=== PATIENT | female | born 1965 | race African-American/Black ===

== ENCOUNTER 2017-06-18 20:28 | Emergency (ER) | payer OTHER ==
[~2017-06-18] VITALS: Ht 160 cm; Wt 144.1 kg
[~2017-06-18 20:28] MED LIST: ALBUTEROL SULF8.5 GM IH; AUGMENTIN500 MG PO; Advair 250/50 Diskus IH; Ativan PO; BENADRYL25 MG PO; BENADRYL50 MG PO; CARAFATE100 MG/ML PO; CARDIZEM CD,CA240 MG PO; CARVEDILOL6.25 MG PO; CATAPRES0.2 MG PO; CIPRO500 MG PO; CLONIDINE HCL0.1 MG PO; Catapres PO; Cepacol Lozenge, Sor MM; DELTASONE20 M1 PO; ENDOCET 5-3251 EACH PO; EPIPEN ADU0.3 MG/0.3 IM; FLEXERIL10 MG PO; FLONASE16 G1 BOTH NARES; GUAIFENESIN WI120 ML PO; Habitrol,Nicoderm CQ TD; IBUPROFEN800 MG PO; INVOKANA100 MG PO; KEFLEX500 MG PO; KOMBIGLYZE XR1 EAC2 PO; LEVAQUIN500 MG PO; Levaquin PO; MEDROL DOSEPAK4 MG PO; METFORMIN HCL1000 MG PO; METFORMIN HCL500 MG PO; MUCUS ER600 MG PO; NAPROSYN500 MG PO; NOHOMEMEDS; Norvasc PO; PEPCID20 MG PO; PERCOCET 5/31 TABLET PO; PREDNISONE20 MG PO; PROAIR HFA8.5 GM IH; PROTONIX40 MG PO; PROVENTIL,2.5 MG/0.5 IH; PROVENTIL,2.5 MG/3 M IH; RANITIDINE HCL150 MG PO; TESSALON PERLE100 MG PO; TO WHOM IT MAY CONCE; VENTOLIN HFA18 GM IH; VICODIN 5-3001 EACH PO; ZITHROMAX Z-PA250 MG PO; ZOFRAN4 MG PO; ZYRTEC10 M2 PO; predniSONE PO
[2017-06-19] MEDS ORDERED: ZITHROMAX250 MG PO (01:25)
[2017-06-19] MEDS ORDERED: ALBUTEROL2.5 MG/3 M IH (01:25)
[2017-06-19] MEDS ORDERED: PROMETHAZINE HC25 M1 PO (01:25)
[2017-06-19 01:47] VITALS: BP 157/81
== END 2017-06-19 01:57 | disposition home or self-care (01) ==
LOC: EME 20:28
DX: J45.41 Moderate persistent asthma with (acute) exacerbation (principal); I10 Essential (primary) hypertension; J44.9 Chronic obstructive pulmonary disease, unspecified; E11.9 Type 2 diabetes mellitus without complications; Z79.84 Long term (current) use of oral hypoglycemic drugs; F17.200 Nicotine dependence, unspecified, uncomplicated
CPT/HCPCS: 71020; 93005; 94640; 94640 76; 99281; 99284; J8540

== ENCOUNTER 2017-06-27 17:57 | Emergency (ER) | payer OTHER ==
[~2017-06-27] VITALS: Ht 160 cm; Wt 142.2 kg
[~2017-06-27 17:57] MED LIST changes: +ALBUTEROL2.5 MG/3 M IH; +PROMETHAZINE HC25 M1 PO; +ZITHROMAX250 MG PO
[2017-06-27 19:12] LABS: HEMATOCRIT 37.9 % (36.0-46.0); MCH 27.3 PG (29.0-34.0); MCHC 32.5 G/DL (30.0-36.0); MCV 84.2 FL (83-99); RBC DIS.WIDTH-CV 14.2 % (11.8-14.6); RBC DIS.WIDTH-SD 43.2 % (39-53); WHITE BLOOD COUNT 8.5 K/uL (4.1-10.2)
[2017-06-27 19:18] LABS: CHLORIDE 102 mEq/L (99-109); POTASSIUM 3.7 mEq/L (3.7-5.4); SODIUM 139 mEq/L (136-147)
[2017-06-27 19:20] LABS: GLUCOSE 158 mg/dL (70-99)
[2017-06-27 19:21] LABS: ANION GAP 12 MEQ/L (2-14)
[2017-06-27 19:22] LABS: TOTAL BILIRUBIN 0.3 mg/dL (0.0-1.0)
[2017-06-27 19:24] LABS: ALKALINE PHOSPHATASE 84 IU/L (3-129); GFR ESTIMATE (CALCULATED) > 59 mL/min/
[2017-06-27 19:25] LABS: UREA NITROGEN (BUN) 8 mg/dL (9-23)
[2017-06-27 19:32] LABS: QUANTITATIVE HCG < 4.0 MIU/ML
[2017-06-27 19:58] LABS: ADD MIUA? YES; BILIRUBIN NEGATIVE; BLOOD NEGATIVE; COLOR YELLOW ((YELLOW)); GLUCOSE (STRIP) NEGATIVE; KETONES NEGATIVE; LEUKOCYTES NEGATIVE; NITRITE NEGATIVE; PROTEIN (STRIP) NEGATIVE; SPECIFIC GRAVITY 1.006 (1.000-1.030); UROBILINOGEN 0.2 MG/DL (0.2-1.0)
[2017-06-27 20:04] LABS: BACTERIA NONE SEEN /HPF; EPITHELIAL CELLS 1+ /HPF; MUCUS TRACE /LPF; RED BLOOD CELLS 0-5 /HPF (0-5); UCUL ADDED? NO; WHITE BLOOD CELLS 0-5 /HPF (0-5)
[2017-06-27 20:22] LABS: LIPASE 16 U/L (1.0-51.0)
[2017-06-27 20:29] LABS: MEAN PLAT.VOLUME 11.9 uM^3 (9.5-12.4); PLAT.SUFFICIENCY ADEQUATE; PLATELET COUNT 223 K/uL (156-360)
[2017-06-27] MEDS ORDERED: MOTRIN800 MG PO (23:05)
[2017-06-27] MEDS ORDERED: BENTYL20 MG PO (23:05)
[2017-06-27] MEDS ORDERED: ZOFRAN ODT4 MG PO (23:05)
[2017-06-27 23:31] VITALS: BP 159/82
[2017-06-28] MEDS ORDERED: ACYCLOVIR800 MG PO (20:06)
[2017-06-28] MEDS ORDERED: REGLAN5 MG PO (20:08)
[2017-06-28] MEDS ORDERED: ULTRACET1 TABLET PO (20:16)
== END 2017-06-27 23:32 | disposition home or self-care (01) ==
LOC: EME 17:57
DX: K52.9 Noninfective gastroenteritis and colitis, unspecified (principal); E11.9 Type 2 diabetes mellitus without complications; J44.9 Chronic obstructive pulmonary disease, unspecified; I10 Essential (primary) hypertension; Z98.51 Tubal ligation status; Z72.0 Tobacco use; Z79.84 Long term (current) use of oral hypoglycemic drugs
CPT/HCPCS: 74177; 80053; 81003; 83690; 84702; 85027; 99281; 99285; J0500; J1885; J2405

== ENCOUNTER 2017-06-28 16:13 | Emergency (ER) | payer OTHER ==
[~2017-06-28] VITALS: Ht 160 cm; Wt 141.7 kg
[~2017-06-28 16:13] MED LIST changes: +BENTYL20 MG PO; +MOTRIN800 MG PO; +ZOFRAN ODT4 MG PO
[2017-06-28 16:56] LABS: HEMATOCRIT 39.6 % (36.0-46.0); MCH 26.8 PG (29.0-34.0); MCHC 31.6 G/DL (30.0-36.0); MCV 84.8 FL (83-99); PLATELET COUNT 250 K/uL (156-360); RBC DIS.WIDTH-SD 43.3 % (39-53); RED BLOOD COUNT 4.67 M/uL (3.80-5.20); WHITE BLOOD COUNT 8.4 K/uL (4.1-10.2)
[2017-06-28 17:07] LABS: CHLORIDE 98 mEq/L (99-109); SODIUM 139 mEq/L (136-147)
[2017-06-28 17:09] LABS: GLUCOSE 122 mg/dL (70-99)
[2017-06-28 17:10] LABS: ANION GAP 16 MEQ/L (2-14)
[2017-06-28 17:12] LABS: ALKALINE PHOSPHATASE 86 IU/L (3-129)
[2017-06-28 17:13] LABS: GFR ESTIMATE (CALCULATED) > 59 mL/min/
[2017-06-28 17:14] LABS: UREA NITROGEN (BUN) 7 mg/dL (9-23)
[2017-06-28 17:16] LABS: LIPASE 21 U/L (1.0-51.0)
[2017-06-28 17:22] LABS: QUANTITATIVE HCG < 4.0 MIU/ML
[2017-06-28 17:26] LABS: TOTAL BILIRUBIN 0.4 mg/dL (0.0-1.0)
[2017-06-28] MEDS ORDERED: ACYCLOVIR800 MG PO (20:06)
[2017-06-28] MEDS ORDERED: REGLAN5 MG PO (20:08)
[2017-06-28] MEDS ORDERED: ULTRACET1 TABLET PO (20:16)
[2017-06-28 21:02] VITALS: BP 168/95
== END 2017-06-28 21:04 | disposition home or self-care (01) ==
LOC: EME 16:13
PROVIDERS: Physician Assistant Medical
DX: B02.9 Zoster without complications (principal); R10.9 Unspecified abdominal pain; R51 Headache; I10 Essential (primary) hypertension; E11.9 Type 2 diabetes mellitus without complications; Z79.84 Long term (current) use of oral hypoglycemic drugs; J44.9 Chronic obstructive pulmonary disease, unspecified; F41.9 Anxiety disorder, unspecified; F17.200 Nicotine dependence, unspecified, uncomplicated; Z88.8 Allergy status to other drugs, medicaments and biological substances
CPT/HCPCS: 70450; 80053; 81003; 83690; 84702; 85027; 99281; 99285; J1200; J2270; J2765; J7030

== ENCOUNTER 2017-07-29 12:51 | Observation (INO) | payer OTHER ==
[~2017-07-29] VITALS: Ht 160 cm; Wt 144.3 kg
[~2017-07-29 12:51] MED LIST changes: +ACYCLOVIR800 MG PO; +REGLAN5 MG PO; +ULTRACET1 TABLET PO
[2017-07-29 13:27] LABS: HEMATOCRIT 39.8 % (36.0-46.0); MCHC 31.7 G/DL (30.0-36.0); MCV 85.2 FL (83-99); MEAN PLAT.VOLUME 12.1 uM^3 (9.5-12.4); PLATELET COUNT 240 K/uL (156-360); RBC DIS.WIDTH-CV 14.4 % (11.8-14.6); RBC DIS.WIDTH-SD 44.6 % (39-53); RED BLOOD COUNT 4.67 M/uL (3.80-5.20)
[2017-07-29 13:36] LABS: CHLORIDE 105 mEq/L (99-109); POTASSIUM 3.7 mEq/L (3.7-5.4); SODIUM 142 mEq/L (136-147)
[2017-07-29 13:38] LABS: GLUCOSE 169 mg/dL (70-99)
[2017-07-29 13:39] LABS: ANION GAP 13 MEQ/L (2-14)
[2017-07-29 13:42] LABS: GFR ESTIMATE (CALCULATED) > 59 mL/min/
[2017-07-29 13:43] LABS: UREA NITROGEN (BUN) 15 mg/dL (9-23)
[2017-07-29 13:48] LABS: TROP-I INTERPRETATION NEGATIVE; TROPONIN-I 0.02 ng/mL (0.0-0.30)
[2017-07-29 13:50] LABS: QUANTITATIVE HCG < 4.0 MIU/ML
[2017-07-29 13:54] LABS: D-DIMER ELISA < 150.00 ng/mLDDU (<230)
[2017-07-29] MEDS ORDERED: BENADRYL25 MG PO (15:24)
[2017-07-29] MEDS ORDERED: NICODERM CQ1 EACH TD (15:25)
[2017-07-29 16:05] VITALS: BP 142/70
[2017-07-29 16:42] LABS: POINT-OF-CARE METER ID UU13113831
[2017-07-29 20:30] VITALS: BP 167/75
[2017-07-29 20:36] LABS: TROP-I INTERPRETATION NEGATIVE; TROPONIN-I 0.03 ng/mL (0.0-0.30)
[2017-07-30 00:14] VITALS: BP 139/66
[2017-07-30 02:12] LABS: TROP-I INTERPRETATION NEGATIVE; TROPONIN-I 0.03 ng/mL (0.0-0.30)
[2017-07-30 04:30] VITALS: BP 188/86
[2017-07-30 08:50] VITALS: BP 178/97
[2017-07-30 09:07] LABS: POINT-OF-CARE METER ID UU13113831
[2017-07-30] MEDS ORDERED: ASPIRIN81 M2 PO (09:37)
[2017-07-30] MEDS ORDERED: PRAVACHOL40 MG PO (09:37)
[2017-07-30] MEDS ORDERED: NORVASC5 MG PO (10:20)
[2017-07-30 11:12] VITALS: BP 208/93
[2017-07-30 12:35] LABS: POINT-OF-CARE METER ID UU13113831
[2017-07-30 13:33] VITALS: BP 171/74
[2017-07-30] MEDS ORDERED: NORVASC10 MG PO (13:44)
== END 2017-07-30 17:01 | disposition home or self-care (01) ==
LOC: EME 12:51 → 5WEST 14:55 → EDOF 14:55 → ENRESERV 14:57 → 5WEST 15:42
PROVIDERS: Emergency Medicine; Internal Medicine
DX: R07.9 Chest pain, unspecified (principal); I48.91 Unspecified atrial fibrillation; I10 Essential (primary) hypertension; E11.9 Type 2 diabetes mellitus without complications; E78.5 Hyperlipidemia, unspecified; E66.9 Obesity, unspecified; Z68.43 Body mass index [BMI] 50.0-59.9, adult; Z79.84 Long term (current) use of oral hypoglycemic drugs; Z90.49 Acquired absence of other specified parts of digestive tract; Z72.0 Tobacco use
CPT/HCPCS: 71010; 80048; 82948; 84443; 84484; 84702; 85027; 85379; 93005; 93306; 99281; 99285; G0378; J1650

== ENCOUNTER 2018-02-05 09:21 | Emergency (ER) | payer OTHER ==
[~2018-02-05] VITALS: Ht 160 cm; Wt 144.1 kg
[~2018-02-05 09:21] MED LIST changes: +ASPIRIN81 M2 PO; +NICODERM CQ1 EACH TD; +NORVASC10 MG PO; +NORVASC5 MG PO; +PRAVACHOL40 MG PO
[2018-02-05 09:54] LABS: HEMATOCRIT 39.4 % (36.0-46.0); HEMOGLOBIN 13.1 G/DL (11.9-15.5); MCH 27.9 PG (29.0-34.0); MCHC 33.2 G/DL (30.0-36.0); RBC DIS.WIDTH-CV 14.2 % (11.8-14.6); RBC DIS.WIDTH-SD 43.3 % (39-53); RED BLOOD COUNT 4.69 M/uL (3.80-5.20)
[2018-02-05 10:03] LABS: CHLORIDE 104 mEq/L (99-109); POTASSIUM 3.7 mEq/L (3.7-5.4); SODIUM 140 mEq/L (136-147)
[2018-02-05 10:04] LABS: GLUCOSE 212 mg/dL (70-99)
[2018-02-05 10:06] LABS: INTER. NORMALIZED RATIO 1.3
[2018-02-05 10:08] LABS: CREATININE 0.8 mg/dL (0.6-1.3); GFR ESTIMATE (CALCULATED) > 59 mL/min/; PTT 33.3 SEC (25-37)
[2018-02-05 10:09] LABS: UREA NITROGEN (BUN) 10 mg/dL (9-23)
[2018-02-05 10:14] LABS: TROP-I INTERPRETATION NEGATIVE; TROPONIN-I 0.02 ng/mL (0.0-0.30)
[2018-02-05 10:17] LABS: QUANTITATIVE HCG < 4.0 MIU/ML
[2018-02-05 10:35] LABS: PLAT.SUFFICIENCY ADEQUATE; PLATELET COUNT 282 K/uL (156-360)
[2018-02-05 12:45] LABS: TROP-I INTERPRETATION NEGATIVE; TROPONIN-I 0.02 ng/mL (0.0-0.30)
[2018-02-05 13:32] VITALS: BP 171/81
== END 2018-02-05 13:32 | disposition home or self-care (01) ==
LOC: EME 09:21
PROVIDERS: Emergency Medicine
DX: I48.91 Unspecified atrial fibrillation (principal); R06.00 Dyspnea, unspecified; I44.0 Atrioventricular block, first degree; E11.9 Type 2 diabetes mellitus without complications; Z79.84 Long term (current) use of oral hypoglycemic drugs; I10 Essential (primary) hypertension; F17.200 Nicotine dependence, unspecified, uncomplicated; E66.01 Morbid (severe) obesity due to excess calories; Z68.43 Body mass index [BMI] 50.0-59.9, adult; E78.5 Hyperlipidemia, unspecified; F41.9 Anxiety disorder, unspecified; J43.9 Emphysema, unspecified; Z88.8 Allergy status to other drugs, medicaments and biological substances; Z88.6 Allergy status to analgesic agent
CPT/HCPCS: 71045; 80048; 84484; 84702; 85027; 85610; 85730; 93005; 99281; 99282

== ENCOUNTER 2018-04-23 21:39 | Emergency (ER) | payer OTHER ==
[~2018-04-23] VITALS: Ht 160 cm; Wt 138.8 kg
[2018-04-23 22:13] LABS: HEMOGLOBIN 12.7 G/DL (11.9-15.5); MCH 28.1 PG (29.0-34.0); MCHC 33.4 G/DL (30.0-36.0); MCV 84.1 FL (83-99); PLATELET COUNT 261 K/uL (156-360); RED BLOOD COUNT 4.52 M/uL (3.80-5.20); WHITE BLOOD COUNT 10.7 K/uL (4.1-10.2)
[2018-04-23 22:17] LABS: APPEARANCE CLEAR ((CLEAR)); BILIRUBIN NEGATIVE; BLOOD NEGATIVE; COLOR YELLOW ((YELLOW)); GLUCOSE (STRIP) NEGATIVE; KETONES NEGATIVE; LEUKOCYTES NEGATIVE; NITRITE NEGATIVE; PROTEIN (STRIP) 30; SPECIFIC GRAVITY 1.019 (1.000-1.030); UCUL ADDED? NO; UROBILINOGEN 0.2 MG/DL (0.2-1.0)
[2018-04-23 22:23] LABS: CHLORIDE 103 mEq/L (99-109); POTASSIUM 3.6 mEq/L (3.7-5.4); SODIUM 140 mEq/L (136-147)
[2018-04-23 22:25] LABS: GLUCOSE 168 mg/dL (70-99); TOTAL PROTEIN 8.1 g/dL (6.4-8.3)
[2018-04-23 22:27] LABS: TOTAL BILIRUBIN 0.2 mg/dL (0.0-1.0)
[2018-04-23 22:28] LABS: ALKALINE PHOSPHATASE 105 IU/L (3-129)
[2018-04-23 22:29] LABS: CREATININE 0.8 mg/dL (0.6-1.3); GFR ESTIMATE (CALCULATED) > 59 mL/min/
[2018-04-23 22:30] LABS: AST (GOT) 15 IU/L (2-34); UREA NITROGEN (BUN) 10 mg/dL (9-23)
[2018-04-23 22:32] LABS: ALT (GPT) 17 IU/L (3-49); LIPASE 60 U/L (1.0-51.0)
[2018-04-23 22:39] LABS: QUANTITATIVE HCG < 4.0 MIU/ML
[2018-04-24] MEDS ORDERED: NORVASC10 MG PO (01:45)
[2018-04-24] MEDS ORDERED: CARDIZEM CD,CA240 MG PO (01:46)
[2018-04-24] MEDS ORDERED: ADULT ASPIRIN R81 MG PO (01:46)
[2018-04-24] MEDS ORDERED: GLUCOTROL5 MG PO (01:46)
[2018-04-24 02:12] VITALS: BP 194/92
== END 2018-04-24 02:13 | disposition left against medical advice (07) ==
LOC: EME 21:39
DX: K85.90 Acute pancreatitis without necrosis or infection, unspecified (principal); R11.2 Nausea with vomiting, unspecified; R19.7 Diarrhea, unspecified; G89.29 Other chronic pain; Z79.891 Long term (current) use of opiate analgesic; K76.0 Fatty (change of) liver, not elsewhere classified; K57.30 Diverticulosis of large intestine without perforation or abscess without bleeding; J44.9 Chronic obstructive pulmonary disease, unspecified; I10 Essential (primary) hypertension; E11.9 Type 2 diabetes mellitus without complications; Z79.84 Long term (current) use of oral hypoglycemic drugs; Z79.82 Long term (current) use of aspirin; Z72.0 Tobacco use; Z53.20 Procedure and treatment not carried out because of patient's decision for unspecified reasons
CPT/HCPCS: 74177; 80053; 81003; 83690; 84702; 85027; J2270; J7030

== ENCOUNTER 2018-05-20 12:20 | Observation (INO) | payer OTHER ==
[~2018-05-20] VITALS: Ht 160 cm; Wt 137.6 kg
[~2018-05-20 12:20] MED LIST changes: +ADULT ASPIRIN R81 MG PO; +GLUCOTROL5 MG PO
[2018-05-20 13:52] LABS: BASOPHIL (%) 0.4 % (0-1); EOSINOPHIL (%) 5.2 % (0-5); EOSINOPHIL COUNT 0.4 K/uL (0-0.3); HEMATOCRIT 38.8 % (36.0-46.0); HEMOGLOBIN 12.8 G/DL (11.9-15.5); IMMATURE GRANULOCYTE (%) 0.5 % (0.0-0.7); LYMPHOCYTE (%) 32.4 % (15-42); LYMPHOCYTE COUNT 2.8 K/uL (1.0-2.8); MCH 27.8 PG (29.0-34.0); MCV 84.2 FL (83-99); MONOCYTE (%) 5.3 % (3-12); MONOCYTE COUNT 0.5 K/uL (0-0.8); NEUTROPHIL (%) 56.2 % (45-76); NEUTROPHIL COUNT 4.8 K/uL (1.8-6.4); PLATELET COUNT 242 K/uL (156-360); RBC DIS.WIDTH-CV 14.3 % (11.8-14.6); RBC DIS.WIDTH-SD 43.7 % (39-53); RED BLOOD COUNT 4.61 M/uL (3.80-5.20); WHITE BLOOD COUNT 8.5 K/uL (4.1-10.2)
[2018-05-20 14:01] LABS: CHLORIDE 103 mEq/L (99-109); POTASSIUM 3.5 mEq/L (3.7-5.4); SODIUM 140 mEq/L (136-147)
[2018-05-20 14:03] LABS: GLUCOSE 113 mg/dL (70-99)
[2018-05-20 14:07] LABS: CREATININE 0.7 mg/dL (0.6-1.3); GFR ESTIMATE (CALCULATED) > 59 mL/min/
[2018-05-20 14:08] LABS: UREA NITROGEN (BUN) 9 mg/dL (9-23)
[2018-05-20 14:13] LABS: TROP-I INTERPRETATION NEGATIVE; TROPONIN-I < 0.01 ng/mL (0.0-0.30)
[2018-05-20 15:57] LABS: APPEARANCE SL.HAZY ((CLEAR)); BILIRUBIN NEGATIVE; BLOOD NEGATIVE; COLOR YELLOW ((YELLOW)); GLUCOSE (STRIP) NEGATIVE; KETONES NEGATIVE; LEUKOCYTES NEGATIVE; NITRITE NEGATIVE; PROTEIN (STRIP) 30; SPECIFIC GRAVITY 1.016 (1.000-1.030); UROBILINOGEN 0.2 MG/DL (0.2-1.0)
[2018-05-20 16:02] LABS: BACTERIA RARE /HPF; EPITHELIAL CELLS 2+ /HPF; MUCUS TRACE /LPF; RED BLOOD CELLS 0-5 /HPF (0-5); UCUL ADDED? NO; WHITE BLOOD CELLS 0-5 /HPF (0-5)
[2018-05-20] MEDS ORDERED: LISINOPRIL10 MG PO (17:22)
[2018-05-20] MEDS ORDERED: ALEVE220 MG PO (17:22)
[2018-05-20 19:38] LABS: HDL CHOLESTEROL 36 MG/DL (Desirable>=50); LDL CHOLESTEROL 111 mg/dL (Desirable<100); NON-HDL CHOLESTEROL 153 mg/dL (Desirable<160); TOTAL CHOLESTEROL 189 mg/dL (Desirable<200); TRIGLYCERIDES 212 MG/DL (Normal: <150)
[2018-05-20 20:15] VITALS: BP 195/84
[2018-05-21 00:07] VITALS: BP 182/77
[2018-05-21 03:22] VITALS: BP 164/75
[2018-05-21 07:32] VITALS: BP 186/78
[2018-05-21 11:37] VITALS: BP 127/70; BP 194/95
[2018-05-21] MEDS ORDERED: METFORMIN HCL1000 MG PO (11:41)
[2018-05-21] MEDS ORDERED: ATORVASTATIN CA40 MG PO (11:45)
[2018-05-21] MEDS ORDERED: LOPRESSOR25 MG PO (12:58)
[2018-05-21 16:04] VITALS: BP 162/86
[2018-05-23 09:53] LABS: HEMOGLOBIN A1c (GLYCOHEMOGLOB) 8.3 % (Below 5.7)
== END 2018-05-21 16:56 | disposition home or self-care (01) ==
LOC: EME 12:20 → EDOF 18:11 → 4SOUTH 18:11 → EDOF 18:11 → ENRESERV 18:16 → 4SOUTH 19:35
PROVIDERS: Emergency Medicine; Hospitalist
PROC: B246ZZZ Ultrasonography of Right and Left Heart (ICD-10-PCS; principal; 2018-05-21)
DX: G43.909 Migraine, unspecified, not intractable, without status migrainosus (principal); R20.2 Paresthesia of skin; I11.9 Hypertensive heart disease without heart failure; R94.31 Abnormal electrocardiogram [ECG] [EKG]; G47.33 Obstructive sleep apnea (adult) (pediatric); E66.01 Morbid (severe) obesity due to excess calories; Z68.43 Body mass index [BMI] 50.0-59.9, adult; Z87.891 Personal history of nicotine dependence; I42.9 Cardiomyopathy, unspecified; I47.1 Supraventricular tachycardia; E11.9 Type 2 diabetes mellitus without complications; E78.5 Hyperlipidemia, unspecified; J45.909 Unspecified asthma, uncomplicated; Z86.19 Personal history of other infectious and parasitic diseases; J43.9 Emphysema, unspecified; Z91.010 Allergy to peanuts; Z82.49 Family history of ischemic heart disease and other diseases of the circulatory system; I48.91 Unspecified atrial fibrillation; Z79.82 Long term (current) use of aspirin; Z79.84 Long term (current) use of oral hypoglycemic drugs; Z88.6 Allergy status to analgesic agent; Z88.8 Allergy status to other drugs, medicaments and biological substances; Z91.013 Allergy to seafood; Z83.3 Family history of diabetes mellitus
CPT/HCPCS: 70496; 70498; 70551; 71045; 80048; 80061; 81003; 82948; 83036; 84484; 85025; 93005; 93306; 94799; 99281; 99285; G0378; J1815; J2060